=== PATIENT | male | born 1965 | race Caucasian/White ===

== ENCOUNTER 2016-08-16 11:54 | Day surgery (SDC) | payer MEDICAID ==
[2016-08-16] MEDS ORDERED: NS 1,000 ML IV SCH (13:00)
[2016-08-16] MEDS ORDERED: FLUMAZENIL 0.5 MG/5 ML MDV IVP ONE (13:02)
[2016-08-16] MEDS ORDERED: fentaNYL 100 MCG/2 ML INJ ONE (13:03)
[2016-08-16] MEDS ORDERED: NALOXONE HCL 0.4 MG/ML INJ ONE (13:03)
[2016-08-16] MEDS ORDERED: MIDAZOLAM 2 MG/2 ML VIAL ONE ×2 (13:03)
[2016-08-16] MEDS ORDERED: TRIAMCINOLONE ACETONIDE 200 MG/5 ML MDV IM ONE (14:02)
[2016-08-16] MEDS ORDERED: IOPAMIDOL (ISOVUE-M 300) 15 ML VIAL IV ONE (14:02)
== END 2016-08-16 14:46 | disposition home or self-care (01) ==
LOC: FIMAGING 11:54
PROC: 3E0S3BZ Introduction of Anesthetic Agent into Epidural Space, Percutaneous Approach (ICD-10-PCS; principal; 2016-08-16 14:08)
DX: M47.22 Other spondylosis with radiculopathy, cervical region (principal); M50.30 Other cervical disc degeneration, unspecified cervical region
CPT/HCPCS: J2250; J2310; J3010; J3301; Q9967

== ENCOUNTER 2016-09-27 13:06 | Day surgery (SDC) | payer MEDICAID ==
[2016-09-27] MEDS ORDERED: MIDAZOLAM 2 MG/2 ML VIAL ONE (14:24)
[2016-09-27] MEDS ORDERED: fentaNYL 100 MCG/2 ML INJ ONE (14:24)
[2016-09-27] MEDS ORDERED: TRIAMCINOLONE ACETONIDE 200 MG/5 ML MDV IM ONE (15:13)
[2016-09-27] MEDS ORDERED: IOPAMIDOL (ISOVUE-M 300) 15 ML VIAL ONE (15:13)
== END 2016-09-27 15:45 | disposition home health service (06) ==
LOC: FIMAGING 13:06
PROVIDERS: ATTEND Radiology Diagnostic Radiology
DX: M54.5 Low back pain (principal); Z87.891 Personal history of nicotine dependence
CPT/HCPCS: J2250; J3010; J3301; Q9967

== ENCOUNTER 2017-02-13 12:15 | Day surgery (SDC) | payer MEDICAID ==
[2017-02-13] MEDS ORDERED: fentaNYL 100 MCG/2 ML INJ ONE (13:06)
[2017-02-13] MEDS ORDERED: MIDAZOLAM 2 MG/2 ML VIAL ONE (13:07)
[2017-02-13] MEDS ORDERED: TRIAMCINOLONE ACETONIDE 200 MG/5 ML MDV IM ONE (13:17)
[2017-02-13] MEDS ORDERED: LIDOCAINE 1% 300 MG/30 ML SDV ONE (13:17)
[2017-02-13] MEDS ORDERED: IOPAMIDOL (ISOVUE-M 300) 15 ML VIAL ONE (13:17)
[2017-02-13 14:55] VITALS: BP 153/109; RESP 19; O2SAT 97
== END 2017-02-13 15:00 | disposition home or self-care (01) ==
LOC: FIMAGING 12:15
PROC: 3E0R33Z Introduction of Anti-inflammatory into Spinal Canal, Percutaneous Approach (ICD-10-PCS; principal; 2017-02-13 14:18)
DX: M47.892 Other spondylosis, cervical region (principal); M50.30 Other cervical disc degeneration, unspecified cervical region; G47.30 Sleep apnea, unspecified; Z87.891 Personal history of nicotine dependence
CPT/HCPCS: J2250; J3010; J3301; Q9967

== ENCOUNTER → 2017-04-12 | Day surgery (SDC) | payer MEDICAID ==
[~2017-04-12] MED LIST: FLUMAZENIL 0.5 MG/5 ML MDV IVP PRN; IOPAMIDOL (ISOVUE-M 300) 15 ML VIAL ONE; MIDAZOLAM 2 MG/2 ML VIAL IVP PRN; NALOXONE HCL 0.4 MG/ML INJ IVP PRN; NS 1,000 ML IV SCH; TRIAMCINOLONE ACETONIDE 200 MG/5 ML MDV IM ONE; fentaNYL 100 MCG/2 ML INJ IVP PRN
--- NOTE | 2017-04-12 14:09 | PDPROPOC ---
Sedation Plan of Care Sedation Plan of Care: vital signs stable, mental status noted, patient educated of risks, benefits, alternatives, patient can tolerate sedation ASA Classification: ASA 2 Planned drugs: fentanyl, midazolam Mallampati Score: Class 2 Mallampati Reference Image: Patient passed 3-3-2 rule?: Yes
--- NOTE | 2017-04-12 14:12 | PDGENHP ---
History & Physical Chief Complaint: RUE radiculopathy History of Present Illness: Cervical degenerative disc disease. Most recent cervical epidural steroid injection of 2016, failed to benefit RUE radiculopathy. Pertinent Past, Social, Family History: Treated for pneumonia within last month , still has mild cough. Relevant Physical Exam: outside mri reviewed Cardiorespiratory Assessment: Lungs: fine rales bilateral lower lobes. Heart: RRR, no murmur
--- NOTE | 2017-04-12 14:34 | PDRADPN ---
Radiology Procedure Note Date of Procedure: 04/12/17 Radiologist: Javon Carlson Anesthesia: IV Sedation Pre-op Diagnosis: RUE radiculopathy Post-op Diagnosis: Same Indication: No benefit from previous cervical epidural injection of 02/13/17 Procedure: Cervical epidural steroid injection Finding(s): 2.5 ml kenalog (100 mg) injected via C7-T1. Inf/Abcess present in the surg proc area at time of surgery?: No EBL: Minimal Complications: 0
[2017-04-12 15:03] VITALS: BP 117/85; PULSE 85; RESP 16; TEMP 97.9; O2SAT 92
== END | disposition home or self-care (01) ==
LOC: FIMAGING 12:20
PROVIDERS: ATTEND Radiology Diagnostic Radiology
PROC: 3E0S33Z Introduction of Anti-inflammatory into Epidural Space, Percutaneous Approach (ICD-10-PCS; principal; 2017-04-12 14:36)
DX: M50.13 Cervical disc disorder with radiculopathy, cervicothoracic region (principal)
CPT/HCPCS: J2250; J2310; J3010; J3301; Q9967

== ENCOUNTER 2017-09-22 11:56 | Emergency (ER) | payer MEDICAID ==
--- NOTE | 2017-09-22 12:34 | EDPHY ---
HPI/HX/ROS/PE/MDM Narrative: CHIEF COMPLAINT: Hematuria HPI: The patient is a 52 y/o male with a remote history of trauma to his kidneys during sports with occasional hematuria who arrives at the referral of his PCP and pig iron loader for acute hematuria with clots. He recently saw his PCP who noted his CK was mildly high and referred him to [facility]. He saw the pig iron loader this past week and they attributed the elevated CK level to dehydration and he was sent home with a UA kit that he has not completed yet. He had an episode of hematuria on Monday that seemed to resolve. Last night while having sex he passed thick blood clots prior to orgasm. This was not associated with pain. He has had no urinary symptoms today. He called his doctor to discuss the clots and the triage nurse advised him to come to the ED for evaluation. He has not seen a urologist for these symptoms yet, but is scheduled to see one in October. REVIEW OF SYSTEMS: Aside from elements discussed in the HPI, a comprehensive 10-point review of systems was reviewed and is negative. PMH: Colorblind; remote kidney trauma during sports; occasional hematuria SOCIAL HISTORY: Girlfriend at bedside. 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 PCP: [facility] PHYSICAL EXAM: General:Patient is alert, in no acute distress. ENT:Eyes are normal to inspection. ENT inspection normal. Neck: Normal inspection. Full range of motion. Respiratory:No respiratory distress. Breath sounds normal bilaterally. Cardiovascular: Regular rate and rhythm. Strong peripheral pulses. Normal cap refill. Abdomen:The abdomen is nontender to palpation. There are no peritoneal signs. Back: Normal to inspection. No tenderness to palpation. Skin: Normal color. No rash. Warm and dry. Extremities: Normal appearance. Full range of motion. Neuro: Oriented x3. Normal motor function. Normal sensory function. ED Course: This is a normally healthy 52 y/o male with a long history of intermittent hematuria possibly related to remote kidney injury during sports. He presents for evaluation after he passed blood clots from his urethra last night during sex. He has no current symptoms and has never had associated pain. Plan for UA. Patient has also requested that we recheck his CK since it was mildly elevated two weeks ago. Initial CHEM potassium was high, but I suspect this is due to hemolysis. Repeat ISTAT potassium is 4.7. Creatinine Kinase is mildly elevated. UA is normal. Reassessed patient and discussed work up. Recommended urology follow up within the next week. Return precautions discussed. He is comfortable with this discharge plan. MDM: This patient presents with intermittent hematuria and what now sounds like an episode of hermatospermia. He has been undergoing a workup with his pig iron loader who has found no evidence of kidney disorder. I explained to the patient that I think he needs urgent Urologic workup. There are no signs of renal failure here, no urinary obstruction or urinary retention. - Data Points Laboratory Results: Laboratory Results 09/22/17 12:45 09/22/17 09/22/17 12:45 12:06 Sodium 139 mEq/L mEq/L (135-145) Potassium 5.4 mEq/L H mEq/L (3.5-5.2) Chloride 99 mEq/L mEq/L (97-110) Carbon Dioxide 29 mEq/l mEq/l (22-31) Anion Gap 11 mEq/L mEq/L (8-16) BUN 13 mg/dL mg/dL (7-23) Creatinine 1.2 mg/dL mg/dL (0.7-1.3) Estimated GFR > 60 Glucose 94 mg/dL mg/dL (70-100) Calcium 9.6 mg/dL mg/dL (8.5-10.4) Creatine Kinase 329 IU/L H IU/L (0-224) CK-MB (CK-2) Fraction 3.86 ng/mL H ng/mL (0.00-3.19) CK-MB (CK-2) % 1.2 % % (0.0-4.0) Creatine Kinase Interp NEGATIVE (NEGATIVE) Urine Color YELLOW Urine Appearance CLEAR Urine pH 6.0 (5.0-7.5) Ur Specific [place] 1.018 (1.002-1.030) Urine Protein NEGATIVE (NEGATIVE) Urine Ketones NEGATIVE (NEGATIVE) Urine Blood NEGATIVE (NEGATIVE) Urine Nitrate NEGATIVE (NEGATIVE) Urine Bilirubin NEGATIVE (NEGATIVE) Urine Urobilinogen NEGATIVE EU EU (0.2-1.0) Ur Leukocyte Esterase NEGATIVE (NEGATIVE) Urine Glucose NEGATIVE (NEGATIVE) General Time Seen by Provider: 09/22/17 12:10 Initial Vital Signs: Initial Vital Signs Temperature (C) 36.3 C 09/22/17 12:03 Heart Rate 96 09/22/17 12:03 Respiratory Rate 16 05/11/18 12:03 Blood Pressure 130/103 H 09/22/17 12:03 O2 Sat (%) 97 09/22/17 12:03 O2 Delivery Mode Room Air Allergies/Adverse Reactions: No Known Allergies Allergy (Verified 09/14/16 15:15) Home Medications: Medication Instructions Recorded DULoxetine [Cymbalta] 60 mg PO DAILY 12/01/14 Gabapentin [Neurontin 300 MG (*)] 900 mg PO TID 04/08/16 Itraconazole 09/22/17 Departure - Departure Disposition: Home, Routine, Self-Care Clinical Impression: Hematuria Condition: Good Instructions: Hematuria (ED) Additional Instructions: Follow up with urologist in the next week. You've been referred to Dr. Kennedy. I recommend calling today to schedule this appointment. Return to the ED for worsening of condition. Referrals: ALEXANDRE BYRD [Other] - As per Instructions Alex Kennedy MD [Medical Doctor] - As per Instructions Report Scribed for: Nando Craig Report Scribed by: Yenny Greenwood Date of Report: 09/22/17 Time of Report: 12:34 Physician Review and Approval Statement: Portions of this note were transcribed by an ED scribe. I personally performed the history, physical exam, and medical decision making; and confirm the accuracy of the information in the transcribed note.
[2017-09-22 13:13] LABS: CREATINE KINASE 329 IU/L (0-224)
[2017-09-22 14:30] VITALS: BP 128/96
== END 2017-09-22 14:30 | disposition home or self-care (01) ==
DX: R31.9 Hematuria, unspecified (principal)
CPT/HCPCS: 82947-QW

== ENCOUNTER 2018-08-07 10:35 | Emergency (ER) | payer MEDICAID ==
[2018-08-07] MEDS ORDERED: SODIUM BICARBONATE 50 MEQ/50 ML SYR ONE ×2 (10:39→11:00)
[2018-08-07] MEDS ORDERED: NALOXONE HCL 2 MG/2 ML SYR IVP ONE (10:39)
--- NOTE | 2018-08-07 10:58 | EDPHY ---
H & P Time Seen by Provider: 08/07/18 10:35 HPI/ROS: CHIEF COMPLAINT: Cardiac arrest HISTORY OF PRESENT ILLNESS: Patient brought by EMS in cardiac arrest. The history is for several episodes of possible seizure-like activity prior to EMS being called. They lost vital signs while loading the patient into the ambulance. Pre-hospital glucose greater than 400, on arrival CPR in progress. Report per EMS of a possible fall unknown time with some forehead bruising. Remainder of review of systems and history unobtainable on arrival as the patient is nonverbal. PAST MEDICAL HISTORY: Anxiety Social history: Previous history of drug use in past General Appearance: Unresponsive Eyes: Pupils nonreactive ENT, Mouth: Oral airway in place Respiratory: Apneic, breath sounds are present bilaterally with bag-valve ventilation. Cardiovascular: No pulses Neurological: No spontaneous respirations or movement Skin: Forehead abrasion Remainder of physical exam deferred because the critical nature of the patient. Emergency Department course/MDM: Orally intubated by myself with the glide scope. See procedure note for details. IO and IV access obtained. CPR continued, multiple doses of epinephrine and bicarbonate, Narcan given. Prehospital glucose noted to not be low. Bedside cardiac ultrasound after multiple rounds of epinephrine shows no cardiac activity. Did not regain any sustained electrical activity or pulse. Pronounced in the emergency department. [id number]: discussed with ex- and sister in law in the ED. They asked about etiology of his arrest, I told them that I don't know primary cause at this time. Smoking Status: Former smoker Constitutional: Initial Vital Signs Temperature (C) 36.1 C 08/07/18 10:35 O2 (L/minute) 15 Allergies/Adverse Reactions: No Known Allergies Allergy (Verified 09/14/16 15:15) Home Medications: Medication Instructions Recorded DULoxetine [Cymbalta] 60 mg PO DAILY 12/01/14 Gabapentin [Neurontin 300 MG (*)] 900 mg PO TID 04/08/16 Itraconazole 09/22/17 Medical Decision Making Procedures: Indication for the procedure was cardiac and respiratory arrest. Consent implied as the patient is nonverbal. The patient was orally endotracheally intubated under direct visualization with a 8.0 ETT using the glide scope. The tube was seen to go directly through the true vocal cords. Tracheal intubation was confirmed with misting on the tube; breath sounds were auscultated equally bilaterally; appropriate color change with End Tidal CO2 detector, bag valve mask compliance is appropriate. The procedure was performed by myself. - Data Points Laboratory Results: 08/07/18 10:49 POC Hgb 15.6 gm/dL gm/dL (13.7-17.5) POC Hct 46 % % (40-51) POC Sodium 144 mEq/L mEq/L (135-145) POC Potassium 4.7 mEq/L mEq/L (3.3-5.0) POC Chloride 108 mEq/L mEq/L (97-110) POC Total CO2 16 mEq/L L mEq/L (22-31) POC BUN 19 mg/dL mg/dL (7-23) POC Creatinine 1.7 mg/dL H mg/dL (0.7-1.3) POC Glucose 349 mg/dL H mg/dL (70-100) Medications Given: Discontinued Medications Epinephrine HCl (Epinephrine) 1 mg IVP EDNOW ONE Stop: 08/07/18 11:03 Last Admin: 08/07/18 10:37 Dose: 1 mg Epinephrine HCl (Epinephrine) 1 mg IVP EDNOW ONE Stop: 08/07/18 11:03 Last Admin: 08/07/18 10:41 Dose: 1 mg Epinephrine HCl (Epinephrine) 1 mg IVP EDNOW ONE Stop: 08/07/18 11:04 Last Admin: 08/07/18 10:44 Dose: 1 mg Epinephrine HCl (Epinephrine) 1 mg IVP EDNOW ONE Stop: 08/07/18 11:04 Last Admin: 08/07/18 10:46 Dose: 1 mg Epinephrine HCl (Epinephrine) 1 mg IVP EDNOW ONE Stop: 08/07/18 11:05 Last Admin: 08/07/18 10:50 Dose: 1 mg Epinephrine HCl (Epinephrine) 1 mg IVP EDNOW ONE Stop: 08/07/18 11:05 Last Admin: 08/07/18 10:53 Dose: 1 mg Sodium Chloride (Ns) 1,000 mls @ 0 mls/hr IV EDNOW ONE; Wide Open PRN Reason: Protocol Stop: 08/07/18 11:03 Last Admin: 08/07/18 10:39 Dose: 1,000 mls Naloxone HCl (Narcan) 0.4 mg IVP EDNOW ONE Stop: 08/07/18 11:03 Last Admin: 08/07/18 10:41 Dose: 0.4 mg Sodium Bicarbonate (Sodium Bicarbonate) 50 meq IVP EDNOW ONE Stop: 08/07/18 11:03 Last Admin: 08/07/18 10:39 Dose: 50 meq Point of Care Test Results: Chemistry 08/07/18 10:49 POC Sodium 144 mEq/L mEq/L (135-145) POC Potassium 4.7 mEq/L mEq/L (3.3-5.0) POC Chloride 108 mEq/L mEq/L (97-110) POC Total CO2 16 mEq/L L mEq/L (22-31) POC BUN 19 mg/dL mg/dL (7-23) POC Creatinine 1.7 mg/dL H mg/dL (0.7-1.3) POC Glucose 349 mg/dL H mg/dL (70-100) ISTAT H&H 08/07/18 10:49 POC Hgb 15.6 gm/dL gm/dL (13.7-17.5) POC Hct 46 % % (40-51) Departure - Departure Disposition: Clinical Impression: Cardiac arrest Referrals: Patient,NotPresent [Primary Care Provider] - As per Instructions
[2018-08-07] MEDS ORDERED: EPINEPHrine 1 MG/10 ML SYR IVP ONE ×7 (11:00→11:04)
[2018-08-07] MEDS ORDERED: SODIUM BICARBONATE 50 MEQ/50 ML SYR IVP ONE (11:02)
[2018-08-07] MEDS ORDERED: NS 1,000 ML IV ONE (11:02)
[2018-08-07] MEDS ORDERED: NALOXONE HCL 0.4 MG/ML INJ IVP ONE (11:02)
--- NOTE | 2018-08-07 15:41 | ASMTCMCOM ---
CM Note CM Note Notes: Pt presented to the ED via EMS from home for cardiac arrest. Pt was not able to be resuscitated and was pronounced in the ED. [employer] Officer said the pt's 17-year-old son, Eliceo, and the pt's ex-, Esthela De Dios ([phone]) were at the pt's house when the pt was transported by EMS. Per [facility], Eliceo was at home with the pt when the pt initially started acting unusual so Eliceo called Esthela; Esthela arrived to the pt's house and was present when the pt had a seizure. [facility] said Esthela was on her way to the ED. This CM called Esthela and left a voicemail. Esthela arrived to the ED and this CM met her at the ED entrance. Esthela was still very close with the pt and considered him a very close friend. CM brought Esthela back to the family room and while waiting for the ED provider to be available, Esthela kept asking if pt was okay and if he was breathing, etc. This CM informed her of pt not surviving. Pt's sister arrived to the ED and was brought back to the family room as well; the ED Provider arrived to the family room and further discussed with Esthela and her sister. Esthela contacted pt's girlfriend, Glorai Thakkar ([phone]) and informed her of pt's . Esthela had her [id number], Severo, go to her house and fruit picker Eliceo and tell him there at the house prior to bringing him to the ED. CM asked Esthela and family if they would like someone from our Spiritual Services team to come and provide additional support but Esthela and family declined at this time. [employer] Employee Relations Administrator Dain Berlin (O: [phone]) and various other [employer] detectives arrived to the ED and requested to speak to Esthela and her sister. Gloria arrived to the ED and joined Esthela and her sister in the family room. Severo and Eliceo later arrived as well. After the Marking Stitcher completed their documentation/assessment of the pt, the family was brought back to the pt's room to say goodbye. The pt's body was then transported by the Marking Stitcher. [facility] conducted interviews of Esthela, Eliceo, Gloria and other friends or family in the ED. After interviews were completed, this CM met with family again and provided additional emotional support and grief resources, etc. A Date Signed: 08/07/2018 03:41 PM Electronically Signed By:Sophia Plasencia RN
--- NOTE | 2018-08-07 15:45 | ASDISCHSUM ---
Discharge Information Plan Status: Medically Cleared to Leave: Discharge Date:08/07/2018 12:30 PM CM D/C Disposition: ADT D/C Disposition: Projected Discharge Date:08/07/2018 12:30 PM Transportation at D/C: Discharge Delay Reason: Follow-Up Date:08/07/2018 12:30 PM Discharge Slot: Final Diagnosis: Placement Information Patient Contact Information Contact Name:KIANA Relationship:Other Address: City:[place] Alternate Phone: State/Zip Code:[place] Email: Financial Information Financial Class:Medicaid Primary Plan Desc:MEDICAID HEALTH FIRST TIMBER MANAGEMENT SPECIALIST Primary Plan Number:[id number] Secondary Plan Desc: Secondary Plan Number: Assessment Information [facility] Progress Note CM Note CM Note Notes: Pt presented to the ED via EMS from home for cardiac arrest. Pt was not able to be resuscitated and was pronounced in the ED. [facility] Officer said the pt's 17-year-old son, Eliceo, and the pt's ex-, Esthela De Dios ([phone]) were at the pt's house when the pt was transported by EMS. Per [facility], Eliceo was at home with the pt when the pt initially started acting unusual so Eliceo called Esthela; Esthela arrived to the pt's house and was present when the pt had a seizure. [facility] said Esthela was on her way to the ED. This CM called Esthela and left a voicemail. Esthela arrived to the ED and this CM met her at the ED entrance. Esthela was still very close with the pt and considered him a very close friend. CM brought Esthela back to the family room and while waiting for the ED provider to be available, Esthela kept asking if pt was okay and if he was breathing, etc. This CM informed her of pt not surviving. Barron's sister arrived to the ED and was brought back to the family room as well; the ED Provider arrived to the family room and further discussed with Esthela and her sister. Esthela contacted pt's girlfriend, Gloria Naber ([phone]) and informed her of pt's . Esthela had her [id number], Severo, go to her house and brain picker Eliceo and tell him there at the house prior to bringing him to the ED. CM asked Esthela and family if they would like someone from our Spiritual Services team to come and provide additional support but Esthela and family declined at this time. [employer] Senior Financial Analyst Dain Slade (O: [phone]) and various other [employer] detectives arrived to the ED and requested to speak to Esthela and her sister. Gloria arrived to the ED and joined Esthela and her sister in the family room. Severo and Eliceo later arrived as well. After the Certified Ophthalmic Surgical Assistant completed their documentation/assessment of the pt, the family was brought back to the pt's room to say goodbye. The pt's body was then transported by the Certified Ophthalmic Surgical Assistant. [employer] conducted interviews of Esthela, Eliceo, Gloria and other friends or family in the ED. After interviews were completed, this CM met with family again and provided additional emotional support and grief resources, etc. A Date Signed: 08/07/2018 03:41 PM Electronically Signed By:Sophia Plasencia RN Intervention Information Intervention Type:Emotional Support Date of Service:08/07/2018 03:41 PM Patient Type:Emergency Room Staff Member:LUIS F Plasencia Sharon Hours:1 Discipline:Project Construction Assistant Manager Severity: Comment: Intervention Type:Post Acute Communication Date of Service:08/07/2018 03:41 PM Patient Type:Emergency Room Staff Member:LUIS F Plasencia [place] Hours:0.25 Discipline:Project Construction Assistant Manager Severity: Comment:Per pt's ex- Esthela's request, this CM contacted pt's employer [employer] ([phone]) and informed staff member Cal of the pt's .
== END 2018-08-07 12:30 | disposition expired ==
LOC: EDUNIT#
PROC: 0BH17EZ Insertion of Endotracheal Airway into Trachea, Via Natural or Artificial Opening (ICD-10-PCS; principal; 2018-08-07)
DX: I46.9 Cardiac arrest, cause unspecified (principal); F41.9 Anxiety disorder, unspecified
CPT/HCPCS: 82435-PO; 82565-PO; 82947-PO; 84132-PO; 84295-PO; 84520-PO; 85014-ER; 96374; J2310